=== PATIENT | female | born 1965 | race African-American/Black ===

== ENCOUNTER 2019-04-26 08:08 | Outpatient (CLI) | payer OTHER ==
--- NOTE | 2019-04-26 09:41 | Mammography Report ---
Reason: ROUTINE MAMMO Procedure Date: 04/26/2019 Accession Number: [id number] / [id number] Procedure: ZAYNAB - Screening Mammo w/Renny CPT Code: FULL RESULT: EXAM: Screening Mammo w/Renny DATE: 04/26/2019 8:51 AM CLINICAL HISTORY: Screening encounter. History of nulliparity. History of benign right breast biopsy. TECHNIQUE: (B) - Bilateral CC, laterally exaggerated CC, MLO views were obtained. COMPARISON: 09/25/2013 3 10/07/2009. PARENCHYMAL PATTERN: (A) - The breast(s) demonstrate(s) scattered fibroglandular densities. FINDINGS: Postsurgical changes in the right breast are again seen. There are coarse typically benign calcifications. A previously seen right breast mass has resolved, resolution of a cyst, typically benign. There are no suspicious masses, calcifications, or areas of distortion. IMPRESSION: Benign findings. BI-RADS category 2. RECOMMENDATION: (ANNUAL) - Recommend routine annual screening mammography. BI-RADS CATEGORY: (2) - Benign Findings. STANDARD QUALIFYING STATEMENTS: 1. This examination was not reviewed with the aid of Computer-Aided Detection (CAD). 2. A negative or benign imaging report should not preclude biopsy if clinically suspicious findings are present. 3. Dense breasts may obscure an underlying neoplasm. 4. This examination was reviewed with the aid of 3D breast imaging (tomosynthesis).
== END 2019-04-26 08:09 | disposition home or self-care (01) ==
LOC: DI 08:08
PROVIDERS: ATTEND Physician Assistant Medical
DX: Z12.31 Encounter for screening mammogram for malignant neoplasm of breast (principal)
CPT/HCPCS: 77063; 77067

== ENCOUNTER 2019-04-26 08:10 | Outpatient (CLI) | payer OTHER ==
--- NOTE | 2019-04-27 08:51 | DEXA Report ---
Reason: POSTMENOPAUSAL Procedure Date: 04/26/2019 Accession Number: [id number] / [id number] Procedure: DEX - Dexa Spine and/or Hip CPT Code: FULL RESULT: EXAM: Dexa Spine and/or Hip DATE: 04/26/2019 10:19 AM CLINICAL HISTORY: POSTMENOPAUSAL TECHNIQUE: Dual energy x-ray absorptiometry (DXA) was performed on a [employer]. Regions measured are the AP Spine, femoral neck, and if needed forearm. COMPARISON: None. In accordance with the International Society for Clinical Densitometry (ISCD) guidelines, data from previous exams may be reanalyzed using current recommendations and techniques. This is done to allow a more accurate basis for comparison with the current study. FINDINGS: The data for the lumbar spine is as follows: BMD (g/cm/cm) T-SCORE Z-SCORE REGION L1 1.088 -0.4 -1.0 L2 1.056 -1.2 -1.9 L3 1.014 -1.5 -2.3 L4 1.045 -1.3 -2.0 TOTAL 1.049 -1.1 -1.8 NOTE: All evaluable vertebrae are used for classification The data for the hip is as follows: BMD (g/cm/cm) T-SCORE Z-SCORE REGION Neck 0.969 -0.5 -0.9 TOTAL 0.943 -0.5 -1.4 NOTE: The femoral neck or total proximal femur, whichever is lowest, is used for classification. IMPRESSION: THE WHO CLASSIFICATION BASED ON THE INTERNATIONAL REFERENCE STANDARD IS OSTEOPENIA. THE FRACTURE RISK IS INCREASED. RECOMMENDATION: Patients with diagnosis of osteoporosis or osteopenia should have regular bone mineral density assessment. For those eligible for Medicare, routine testing is allowed once every 2 years. Testing frequency can be increased for patients who have rapidly progressing disease or for those who are receiving medical therapy to restore bone mass. COMMENT: World Health Organization (WHO) definitions for osteoporosis and osteopenia: NORMAL BMD: T-score at -1.0 or higher, fracture risk is low OSTEOPENIA BMD: T-score between -1.0 and -2.5, fracture risk is increased. OSTEOPOROSIS BMD: T-score at -2.5 or lower, fracture risk is high. National Osteoporosis Foundation recommends: 1. Obtain adequate dietary calcium (at least 1200 mg per day) and vitamin D (400-800 international units per day). 2. Participate, as appropriate, in regular weightbearing and muscle-strengthening exercise. 3. Avoid tobacco use and reduce alcohol and caffeine intake. 4. For more detailed information see the website at www.NOF.org.
--- NOTE | 2019-04-27 08:57 | Ultrasound Report ---
Reason: AXILLARY MASS Procedure Date: 04/26/2019 Accession Number: [id number] / [id number] Procedure: US - Breast Unilateral Limited CPT Code: FULL RESULT: EXAM: Limited axillary ultrasound on the right. DATE: 04/26/2019 11:31 AM CLINICAL HISTORY: AXILLARY MASS ? COMPARISON: None. TECHNIQUE: Targeted ultrasound was performed of the right axilla. ?Color Doppler was employed as appropriate. ? FINDINGS: Normal axillary soft tissues are identified. No collection, lymphadenopathy or mass is seen. IMPRESSION: Normal axillary ultrasound. BI-RADS 1. Negative study. This limited?breast?ultrasound?was?tailored to address the acute clinical issue. Recommend diagnostic follow-up at a?designated FDA/MQSA certified?breast?imaging facility for more detailed and complete?evaluation. [facility]
== END 2019-04-26 08:11 | disposition home or self-care (01) ==
LOC: DI 08:10
PROVIDERS: ATTEND Physician Assistant Medical
DX: R22.2 Localized swelling, mass and lump, trunk (principal); M85.88 Other specified disorders of bone density and structure, other site; N95.1 Menopausal and female climacteric states
CPT/HCPCS: 76642; 77080

== ENCOUNTER 2019-05-25 14:43 | Emergency (ER) | payer OTHER ==
[2019-05-25 15:05] LABS: BASOPHILS # (AUTO) 0.1 10^3/uL (0.0-0.1); BASOPHILS % (AUTO) 0.5 %; EOSINOPHILS # (AUTO) 0.1 10^3/uL (0.0-0.7); EOSINOPHILS % (AUTO) 1.4 %; HGB - HEMOGLOBIN 12.9 g/dL (12.0-16.0); LYMPHOCYTES # (AUTO) 2.8 10^3/uL (1.5-3.5); LYMPHOCYTES % (AUTO) 28.4 %; MEAN CORPUSCULAR HEMOGLOBIN 25.9 pg (27.0-31.0); MEAN CORPUSCULAR HGB CONC 32.9 g/dL (32.0-36.0); MEAN CORPUSCULAR VOLUME 78.6 fL (81.0-99.0); MEAN PLATELET VOLUME 11.2 fL (7.9-10.8); MONOCYTES # (AUTO) 0.5 10^3/uL (0.0-1.0); NEUTROPHILS # (AUTO) 6.3 10^3/uL (1.5-6.6); NEUTROPHILS % (AUTO) 64.3 %; PLT - PLATELET COUNT 224 10^3/uL (130-450); RED BLOOD COUNT 4.99 10^6/uL (4.20-5.40); RED CELL DISTRIBUTION WIDTH 13.1 % (12.0-15.0); WHITE BLOOD COUNT 9.7 x10^3/uL (4.8-10.8)
[2019-05-25 15:22] LABS: ALBUMIN 4.5 g/dL (3.2-5.5); ALBUMIN/GLOBULIN RATIO 1.3 (1.0-2.2); BILIRUBIN,TOTAL 0.7 mg/dL (0.2-1.0); CREATININE 0.6 mg/dL (0.4-1.0); TOTAL PROTEIN 8.1 g/dL (6.7-8.2)
[2019-05-25] MEDS ORDERED: INSULIN REGULAR HUMAN 100 UNIT/1 ML 10 ML MDV SUBQ STA (15:31)
[2019-05-25] MEDS ORDERED: INSULIN REGULAR HUMAN 100 UNIT/1 ML 10 ML MDV IVP STA (15:31)
[2019-05-25] MEDS ORDERED: SODIUM CHLORIDE 0.9% 1,000 ML IV ONE (15:31)
--- NOTE | 2019-05-25 15:42 | XRAY Report ---
Reason: irregular hb Procedure Date: 05/25/2019 Accession Number: [id number] / [id number] Procedure: XR - Chest 1 View X-Ray CPT Code: 78138 FULL RESULT: EXAM: CHEST RADIOGRAPHY EXAM DATE: 05/25/2019 03:18 PM. CLINICAL HISTORY: Irregular hb. COMPARISON: None. TECHNIQUE: 1 view. FINDINGS: Lungs/Pleura: No focal opacities evident. No pleural effusion. No pneumothorax. Mediastinum: Within exam limitations, the cardiomediastinal contour is normal. Other: None. IMPRESSION: No focal consolidation [facility]
--- NOTE | 2019-05-25 15:50 | ED Physician Documentation ---
History of Present Illness - Stated complaint Stated Complaint: IRREGULAR HEARTBEAT - Chief complaint Chief Complaint: Cardiac - History obtained from History obtained from: Patient - History of Present Illness Timing: Today Pain level max: 0 Pain level now: 0 - Additonal information Additional information: 53-year-old female presents to the emergency department stating that she is feeling like her heart is skipping a beat occasionally today. No chest pain. No nausea or vomiting. Nothing makes it better or worse. Does drink coffee daily. Not on any medications at home. Review of Systems Ten Systems: 10 systems reviewed and negative Constitutional: denies: Fever, Chills Nose: denies: Rhinorrhea / runny nose, Congestion Throat: denies: Sore throat Respiratory: denies: Dyspnea, Cough GI: denies: Vomiting, Diarrhea Skin: denies: Rash Musculoskeletal: denies: Neck pain, Back pain Neurologic: denies: Headache PD PAST MEDICAL HISTORY - Past Medical History Past Medical History: No - Past Surgical History Past Surgical History: No - Present Medications Home Medications: Ambulatory Orders Medication Instructions Recorded Confirmed metFORMIN [Glucophage] 500 mg PO BIDWM #30 tablet 05/25/19 - Allergies Allergies/Adverse Reactions: Allergies Allergy/AdvReac Type Severity Reaction Status Date / Time No Known Drug Allergies Allergy Verified 05/25/19 14:50 - Living Situation Living Situation: reports: With family Living Arrangement: reports: At home - Social History Does the pt smoke?: No Does the pt have substance abuse?: No PD ED PE NORMAL - Vitals Vital signs reviewed: Yes - General General: Alert and oriented X 3, No acute distress - HEENT HEENT: PERRL, Moist mucous membranes - Neck Neck: Supple, no meningeal sign - Cardiac Cardiac: RRR, Strong equal pulses - Respiratory Respiratory: No respiratory distress, Clear bilaterally - Abdomen Abdomen: Soft, Non tender, Non distended - Derm Derm: Warm and dry - Extremities Extremities: No edema - Neuro Neuro: Alert and oriented X 3 - Psych Psych: Normal mood, Normal affect Results - Vitals Vitals: Vital Signs - 24 hr 05/25/19 05/25/19 05/25/19 14:48 16:44 16:50 Temperature 36.6 C Heart Rate 112 H 89 100 Respiratory 22 18 18 Rate Blood Pressure 204/107 H 184/88 H 182/87 H O2 Saturation 97 100 98 Oxygen O2 Source Room air - EKG (time done) 1449 Rate: Rate (enter#) (114) Rhythm: Sinus tachycardia [place]: Normal Intervals: Normal [place] QRS: Normal Ischemia: Normal ST segments Compare to prior EKG: Other (PVC) - Labs Labs: Laboratory Tests 05/25/19 05/25/19 05/25/19 15:00 15:00 15:00 WBC 9.7 RBC 4.99 Hgb 12.9 Hct 39.2 MCV 78.6 L MCH 25.9 L MCHC 32.9 RDW 13.1 Plt Count 224 MPV 11.2 H Neut # (Auto) 6.3 Lymph # (Auto) 2.8 [place] # (Auto) 0.5 Eos # (Auto) 0.1 Baso # (Auto) 0.1 Absolute Nucleated RBC 0.00 Nucleated RBC % 0.0 Sodium 134 L Potassium 4.1 Chloride 100 L Carbon Dioxide 23 Anion Gap 11.0 BUN 12 Creatinine 0.6 Estimated GFR (MDRD) 126 Glucose 516 H* POC Whole Bld Glucose Glycated Hemoglobin Estim Average Glucose Calcium 10.0 Phosphorus 2.8 Magnesium 2.0 Total Bilirubin 0.7 AST 24 ALT 36 Alkaline Phosphatase 114 Total Protein 8.1 Albumin 4.5 Globulin 3.6 Albumin/Globulin Ratio 1.3 Lipase 39 TSH Free T4 05/25/19 05/25/19 05/25/19 15:00 15:00 15:34 WBC RBC Hgb Hct MCV MCH MCHC RDW Plt Count MPV Neut # (Auto) Lymph # (Auto) [place] # (Auto) Eos # (Auto) Baso # (Auto) Absolute Nucleated RBC Nucleated RBC % Sodium Potassium Chloride Carbon Dioxide Anion Gap BUN Creatinine Estimated GFR (MDRD) Glucose POC Whole Bld Glucose 493 H Glycated Hemoglobin 11.7 H Estim Average Glucose 289 H Calcium Phosphorus Magnesium Total Bilirubin AST ALT Alkaline Phosphatase Total Protein Albumin Globulin Albumin/Globulin Ratio Lipase TSH 14.44 H Free T4 0.67 05/25/19 16:12 WBC RBC Hgb Hct MCV MCH MCHC RDW Plt Count MPV Neut # (Auto) Lymph # (Auto) [place] # (Auto) Eos # (Auto) Baso # (Auto) Absolute Nucleated RBC Nucleated RBC % Sodium Potassium Chloride Carbon Dioxide Anion Gap BUN Creatinine Estimated GFR (MDRD) Glucose POC Whole Bld Glucose 411 H Glycated Hemoglobin Estim Average Glucose Calcium Phosphorus Magnesium Total Bilirubin AST ALT Alkaline Phosphatase Total Protein Albumin Globulin Albumin/Globulin Ratio Lipase TSH Free T4 - Rads (name of study) cxr Radiology: Prelim report reviewed, EMP read contemporaneously, See rad report (No focal consolidation) PD MEDICAL DECISION MAKING - ED course Complexity details: reviewed results, re-evaluated patient, considered differential (No ST elevation MD, no aortic dissection, no PE, no tension pneu mothorax, no aortic aneurysm), d/w patient, d/w family ED course: 53-year-old female is found to be hyperglycemic with new onset diabetes. She also has PVCs on the flat locker was correlate to her symptoms. She was given IV fluids, insulin. Will start on metformin. Her hemoglobin A1c is 11. She will follow-up with her doctor for further care. She is well-appearing, nontoxic. Afebrile. No vomiting. No abdominal pain. Patient counseled regarding signs and symptoms for which I believe and urgent re-evaluation would be necessary. Patient with good understanding of and agreement to plan and is comfortable going home at this time This document was made in part using voice recognition software. While efforts are made to proofread this document, sound alike and grammatical errors may occur. 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 Follow-up with your doctor within the next week for repeat evaluation. Return if you worsen. Drink plenty of fluids. Limit any extra sugars. Limit processed foods. Discharge Date/Time: 05/25/19 16:52
[2019-05-25 15:52] LABS: PHOSPHORUS 2.8 mg/dL (2.5-4.6)
[2019-05-25 16:10] LABS: THYROID STIMULATING HORMONE 14.44 uIU/mL (0.34-5.60)
[2019-05-25 16:12] LABS: FREE T4 (FREE THYROXINE) 0.67 ng/dL (0.58-1.64)
[2019-05-25 16:13] LABS: HB2 TOTAL 13.4 g/dL; HEMOGLOBIN A1C 1.4 g/dL; HEMOGLOBIN A1C % 11.7 % (4.6-6.2)
[2019-05-25 16:52] VITALS: BP 182/87
== END 2019-05-25 16:52 | disposition home or self-care (01) ==
LOC: ED 14:43
DX: I49.3 Ventricular premature depolarization (principal); E11.65 Type 2 diabetes mellitus with hyperglycemia; R00.0 Tachycardia, unspecified
CPT/HCPCS: 36415; 71045; 83036; 83690; 83735; 84100; 84439; 93005; 99283; 99284; J1815; 80053; 84443; 85025

== ENCOUNTER 2019-08-20 07:02 | Outpatient (CLI) | payer OTHER ==
[2019-08-20 12:38] LABS: HB2 TOTAL 12.6 g/dL; HEMOGLOBIN A1C 0.61 g/dL; HEMOGLOBIN A1C % 6.6 % (4.6-6.2)
== END 2019-08-20 23:59 | disposition home or self-care (01) ==
LOC: LAB.N 07:02
PROVIDERS: ATTEND Physician Assistant Medical
DX: E11.9 Type 2 diabetes mellitus without complications (principal)
CPT/HCPCS: 36415; 83036

== ENCOUNTER 2019-09-03 07:02 | Outpatient (CLI) | payer OTHER ==
[2019-09-03 13:14] LABS: BUN - BLOOD UREA NITROGEN 11 mg/dL (6-20); CALCIUM 9.2 mg/dL (8.5-10.3); CARBON DIOXIDE - CO2 29 mmol/L (21-32); CHLORIDE 103 mmol/L (101-111); CHOL/HDL RATIO 3.8 (<4.4); CHOLESTEROL 211 mg/dL; CREATININE 0.5 mg/dL (0.4-1.0); GFR - MDRD 155 (>89); GLUCOSE 101 mg/dL (70-100); HDL CHOLESTEROL 56 mg/dL; LDL CHOLESTEROL,CALCULATED 136 mg/dL; LDL/HDL RATIO 2.4 (<4.4); SODIUM 141 mmol/L (135-145); VLDL CHOLESTEROL 19 mg/dL
[2019-09-03 14:34] LABS: FREE T4 (FREE THYROXINE) 0.62 ng/dL (0.58-1.64)
== END 2019-09-03 23:59 | disposition home or self-care (01) ==
LOC: LAB.N 07:02
PROVIDERS: ATTEND Physician Assistant Medical
DX: E11.9 Type 2 diabetes mellitus without complications (principal); I10 Essential (primary) hypertension
CPT/HCPCS: 36415; 80048; 80061; 83721; 84439; 84443

== ENCOUNTER 2019-10-19 07:04 | Outpatient (CLI) | payer OTHER ==
[2019-10-19 12:38] LABS: THYROID STIMULATING HORMONE 0.35 uIU/mL (0.34-5.60)
[2019-10-19 12:40] LABS: FREE T4 (FREE THYROXINE) 1.12 ng/dL (0.58-1.64)
== END 2019-10-19 23:59 | disposition home or self-care (01) ==
LOC: LAB.N 07:04
PROVIDERS: ATTEND Physician Assistant Medical
DX: E03.9 Hypothyroidism, unspecified (principal)
CPT/HCPCS: 36415; 84439; 84443

== ENCOUNTER 2019-12-03 08:00 | Outpatient (CLI) | payer OTHER ==
[2019-12-03 14:36] LABS: HEMOGLOBIN A1C 0.51 g/dL; HEMOGLOBIN A1C % 5.7 % (4.6-6.2)
[2019-12-03 14:37] LABS: CHOL/HDL RATIO 3.3 (<4.4); CHOLESTEROL 165 mg/dL; HDL CHOLESTEROL 50 mg/dL; LDL CHOLESTEROL,CALCULATED 86 mg/dL; LDL/HDL RATIO 1.7 (<4.4); VLDL CHOLESTEROL 29 mg/dL
[2019-12-03 14:44] LABS: THYROID STIMULATING HORMONE < 0.08 uIU/mL (0.34-5.60)
[2019-12-03 14:45] LABS: FREE T4 (FREE THYROXINE) 1.08 ng/dL (0.58-1.64)
[2019-12-03 14:54] LABS: CREATININE,URINE 159.7 mg/dL; MICROALBUM/CREATININE RATIO,UR 8.8 ug/mg (<30.0); MICROALBUMIN,URINE 1.4 mg/dL (0-300.0)
== END 2019-12-03 23:59 | disposition home or self-care (01) ==
LOC: LAB.WCP 08:00
PROVIDERS: ATTEND Physician Assistant Medical
DX: E78.5 Hyperlipidemia, unspecified (principal); E03.9 Hypothyroidism, unspecified
CPT/HCPCS: 36415; 80061; 82043; 82570; 83036; 83721; 84439; 84443